=== PATIENT | female | born 2000 | race African-American/Black ===

== ENCOUNTER 2019-06-14 09:38 | Emergency (ER) | payer SELFPAY ==
--- OUTSIDE RECORDS SUMMARY | 2019-06-14 09:41 | XMS REPORT | Continuity of Care Document ---
:2000 Author Organization [facility] Address [address] [place] [address] Phone Unavailable Care Team Providers Name Role Phone NO, PCP Primary Care Physician Unavailable Advance Directives Directive Response Recorded Date/Time Does the patient have an advance directive? No 06/15/18 9:12pm If yes, is advance directive on file with [facility]? No 06/15/18 9:12pm If not on file with [facility] will patient provide a copy? No 06/15/18 9:12pm Do you have a Directive to Physician? No 06/15/18 9:12pm Do you have a Medical Power of Traffic Control Supervisor? No 06/15/18 9:12pm Do you have an out of hospital Do Not Resuscitate Order? No 06/15/18 9:12pm Do you have any special needs we should be aware of? No 06/15/18 9:12pm Do you have a support person here with you today? Yes 06/15/18 9:12pm Did patient receive Notice of Privacy Practices? Yes 06/15/18 9:12pm Did patient receive patient rights and responsibilities? Yes 06/15/18 9:12pm Problems No problem information available. Medications No known medications. Social History Smoking Status Start Date Stop Date Never Smoker Hospital Discharge Instructions No hospital discharge instruction information available. Plan of Care Discharge Date 06/16/18 12:12am Disposition HOME, SELF-CARE Condition at Discharge Stable Instructions/Education Provided Pelvic Inflammatory Disease (PID) Safe Sex Forms Provided Work/School Excuse Prescriptions See Medication Section Referrals ALISON WHITTAKER MD Order Date: Call for an appointment Address: [address] [place] [address] Additional Instructions/Education Call for follow up appointment to see your medical provider. Take over the counter Motrin or Tylenol medication as needed for comfort. If prescribed medication on discharge, take the medication as prescribed. discussed at the bedside, drink fluids, rest and return to the emergency department for any fever, shortness of breath, chest pain, abdominal pain, trouble handling oral secretions or any new concerns. Strict pelvic rest as discussed at the bedside x 2 weeks. Functional Status No functional status information available. Allergies, Adverse Reactions, Alerts No known allergies. Immunizations No immunization information available. Vital Signs Acute Vital Signs Vital Response Date/Time Height 5 ft 8 in 06/15/2018 7:06pm Weight 175 lb 06/15/2018 7:06pm Body Mass Index 26.6 kg/m^2 06/15/2018 7:06pm Results Laboratory Results Test Name Result Units Flags Reference Collection Result Comments Date/Time Date/Time Urine NEGATIVE NEGATIVE 06/15/2018 06/15/2018 Test 11:30pm 11:46pm Procedures No procedure information available. Encounters Encounter Location Arrival/Admit Date Discharge/Depart Date Attending Provider Departed [facility] 06/15/18 6:46pm 06/16/18 12:12am [facility]
--- NOTE | 2019-06-14 11:02 | ER ---
Nurse's Notes [facility] Name: Flora Asif Age: 18 yrs Sex: Female : 2000 Arrival Date: 06/14/2019 Time: 09:42 Bed 16 Private MD: None, None Diagnosis: Person with feared health complaint in whom no diagnosis is made Presentation: 06/14 09:59 Presenting complaint: Patient states: " I have been inserting these pills into my ph vagina to help w/ odor because I have irregular/long periods. My mom uses them too and she had to go to the ER because she started bleeding and they pulled plastic out of her and I just wanted to make sure I'm okay." Pt reports vaginal bleeding, but periods are irregular, also reports lower abdominal pain, states, " I always have that though because of my Nexplanon." Pills pt using is pH-D boric acid capsules, container states that they are for vaginal use. Transition of care: patient was not received from another setting of care. Onset of symptoms was June 14, 2019. Risk Assessment: Do you want to hurt yourself or someone else? Patient reports no desire to harm self or others. Initial Sepsis Screen: Does the patient meet any 2 criteria? No. Patient's initial sepsis screen is negative. Does the patient have a suspected source of infection? No. Patient's initial sepsis screen is negative. Care prior to arrival: None. 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 - Social history:: Smoking status: Patient/guardian denies using tobacco. - Ebola Screening: : No symptoms or risks identified at this time. Screenin:08 Abuse screen: Denies threats or abuse. Denies injuries from another. Nutritional ph screening: No deficits noted. Tuberculosis screening: No symptoms or risk factors identified. Fall Risk None identified. Assessment: 10:57 General: Appears in no apparent distress. comfortable, Behavior is calm, cooperative, aj appropriate for age. Pain: Denies pain. Neuro: Level of Consciousness is awake, alert, obeys commands, Oriented to person, place, time, situation, Appropriate for age. Respiratory: Airway is patent Respiratory effort is even, unlabored, Respiratory pattern is regular, symmetrical. : Reports discharge. Derm: Skin is intact, is healthy with good turgor, Skin is pink, warm \\T\\ dry. normal. Vital Signs: 10:05 BP 116 / 72; Pulse 88; Resp 18; Temp 97.8; Pulse Ox 100% on R/A; ph ED Course: 09:42 Patient arrived in ED. mr 09:43 None, None is Private Physician. mr 09:51 D[facility]en Ashley [facility] 09:51 Nino Schwab MD is Attending Physician. [facility] 09:58 Jacquelin Jefferson, WIL is Primary Nurse. ph 10:04 Triage completed. ph 10:08 Patient has correct armband on for positive identification. Bed in low position. Call ph light in reach. Side rails up X 1. Pulse ox on. NIBP on. Door closed. Noise minimized. Warm blanket given. Head of bed elevated. 10:57 Assist provider with pelvic exam: Set up pelvic tray. Performed by Darien amezcua Patient tolerated well. 11:09 Patient did not have IV access during this emergency room visit. goldie Administered Medications: No medications were administered Outcome: 11:00 Discharge ordered by . jonel 11:09 Discharged to home ambulatory. aj 11:09 Condition: good 11:09 Discharge instructions given to patient, Instructed on discharge instructions, follow up and referral plans. safe sex practices, Demonstrated understanding of instructions, follow-up care. 11:10 Patient left the ED. goldie Signatures: Nataliya Chaparro, RN RN Darien Mauro PA PA [facility] Manda Padilla mr Jacquelin Jefferson, RN RN ph
--- NOTE | 2019-06-14 11:02 | EDPHYS ---
Physician Documentation [facility] Name: Flora Asif Age: 18 yrs Sex: Female : 2000 Arrival Date: 06/14/2019 Time: 09:42 Bed 16 Private MD: None, None ED Physician Nino Schwab HPI: 06/14 10:12 This 18 yrs old Black Female presents to ER via Ambulatory with complaints of Women jmm problems. 10:12 The patient presents with possible foreign body. Onset: The symptoms/episode jmm began/occurred gradually. Modifying factors: The symptoms are alleviated by nothing, the symptoms are aggravated by nothing. Associated signs and symptoms: The patient has no apparent associated signs or symptoms. This is a 18 year old female with no chronic medical conditions that presents to the ED with concerns of a plastic foreign body from OTC vaginal capsules. Patient states her mom used one and went to the ER to retrieve undissolved capsule. Patient has no complaints of pain or abnormal discharge. . 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 - Social history:: Smoking status: Patient/guardian denies using tobacco. - Ebola Screening: : No symptoms or risks identified at this time. ROS: 10:12 Constitutional: Negative for fever, chills, and weight loss, Cardiovascular: Negative jmm for chest pain, palpitations, and edema, Respiratory: Negative for shortness of breath, cough, wheezing, and pleuritic chest pain, Abdomen/GI: Negative for abdominal pain, nausea, vomiting, diarrhea, and constipation. 10:12 : Negative for urinary symptoms, pelvic pain, vaginal discharge. 10:12 All other systems are negative. Exam: 10:12 Constitutional: This is a well developed, well nourished patient who is awake, alert, jmm and in no acute distress. Head/Face: atraumatic. Eyes: EOMI, no conjunctival erythema appreciated ENT: Moist Mucus Membranes Neck: Trachea midline, Supple Chest/axilla: Normal chest wall appearance and motion. Cardiovascular: Regular rate and rhythm. No edema appreciated Respiratory: Normal respirations, no respiratory distress appreciated Abdomen/GI: Non distended, soft Back: Normal ROM 10:12 Skin: General appearance color normal MS/ Extremity: Moves all extremities, no obvious deformities appreciated, no edema noted to the lower extremities Neuro: Awake and alert, normal gait Psych: Behavior is normal, Mood is normal, Patient is cooperative and pleasant 10:12 : Pelvic Exam: External exam: is normal, Speculum exam: normal findings. Vital Signs: 10:05 BP 116 / 72; Pulse 88; Resp 18; Temp 97.8; Pulse Ox 100% on R/A; ph MDM: 10:12 Patient medically screened. [facility] 10:59 Data reviewed: vital signs, nurses notes. Counseling: I had a detailed discussion with [facility] the patient and/or guardian regarding: the historical points, exam findings, and any diagnostic results supporting the discharge/admit diagnosis, the need for outpatient follow up, to return to the emergency department if symptoms worsen or persist or if there are any questions or concerns that arise at home. 10:59 ED course: Pelvic exam negative. Patient has no other complaints. Patient given return [facility] precautions. patient understood and agrees with the plan of the care. . Administered Medications: No medications were administered Disposition: 12:38 Co-signature as Attending Physician, Nino Schwab MD I agree with the assessment and kdr plan of care. Disposition: 06/14/19 11:00 Discharged to Home. Impression: Person with feared health complaint in whom no diagnosis is made. - Condition is Stable. - Medication Reconciliation Form, Thank You Letter, Antibiotic Education, Prescription Opioid Use form. - Follow up: Private Physician; When: 2 - 3 days; Reason: Recheck today's complaints, Continuance of care, Re-evaluation by your physician. Signatures: Nataliya Chaparro RN RN aj Rittger, Kevin, MD MD kdr Mickail, Joel, PA PA [facility] Jacquelin Jefferson RN RN ph Corrections: (The following items were deleted from the chart) 11:10 11:00 06/14/2019 11:00 Discharged to Home. Impression: Person with feared health aj complaint in whom no diagnosis is made. Condition is Stable. Forms are Medication Reconciliation Form, Thank You Letter, Antibiotic Education, Prescription Opioid Use. Follow up: Private Physician; When: 2 - 3 days; Reason: Recheck today's complaints, Continuance of care, Re-evaluation by your physician. jonel
== END 2019-06-14 11:10 | disposition home or self-care (01) ==
LOC: ER 09:38
DX: Z71.1 Person with feared health complaint in whom no diagnosis is made (principal)
CPT/HCPCS: 99283